=== PATIENT | female | born 1980 | race Two or more races ===

== ENCOUNTER 2020-05-06 16:21 | Emergency (ER) | payer MEDICAID ==
[~2020-05-06] VITALS: Ht 162.6 cm; Wt 81.8 kg
== END 2020-05-06 20:06 | disposition left against medical advice (07) ==
LOC: ER 16:21
DX: R06.00 Dyspnea, unspecified (principal); R43.8 Other disturbances of smell and taste; Z20.828 Contact with and (suspected) exposure to other viral communicable diseases; Z53.21 Procedure and treatment not carried out due to patient leaving prior to being seen by health care provider; Z88.8 Allergy status to other drugs, medicaments and biological substances